=== PATIENT | female | born 1990 | race Caucasian/White ===

== ENCOUNTER → 2023-03-02 | Outpatient (CLI) | payer BC ==
[~2023-03-02] MED LIST: ASPERCREME1 EACH TP; FLEXERIL 1010 MG/TAB PO; PREDNISONE20 MG PO; TORADOL 10MG TA10 MG PO
[2023-03-02 07:48] LABS: BASO # 0.1 K/mm3 (0.0-0.2); BASO % 0.9 % (0.0-2.0); EOS # 0.1 K/mm3 (0.0-0.7); EOS % 1.5 % (0.0-4.0); GRAN # 4.1 K/mm3 (1.4-6.5); GRAN % 60.9 % (42.2-75.2); HEMATOCRIT 40.4 % (37.0-47.0); HEMOGLOBIN 14.1 g/dl (12.5-16.0); LYMPH % 29.1 % (20.0-51.0); MEAN CELL VOLUME 85 fl (80.0-100.0); MEAN CORPUSCULAR HEMOGLOBIN 30 pg (27-31); MEAN CORPUSCULAR HGB CONC 35 g/dl (33.0-37.0); MEAN PLATELET VOLUME 9.7 fl (7.4-10.4); MONO # 0.5 K/mm3 (0.1-0.6); PLATELET COUNT 282 K/mm3 (130-400); RED BLOOD COUNT 4.74 M/mm3 (4.10-5.30); REDCELL DISTRIBUTION WIDTH-CV 13.1 % (11.5-14.5)
[2023-03-02 08:07] LABS: ALBUMIN 3.8 gm/dL (3.5-5.0); BILIRUBIN,TOTAL 0.6 mg/dL (0.2-1.2); CALCIUM 9.2 mg/dL (8.4-10.2); CHOLESTEROL RISK RATIO 3.6; CREATININE, serum 0.75 mg/dL (0.57-1.11); TOTAL PROTEIN 7.5 gm/dL (6.2-8.1)
== END ==
LOC: COL.LAB 07:15
PROVIDERS: Student in an Organized Health Care Education/Training Program
DX: E11.9 Type 2 diabetes mellitus without complications (principal)

== ENCOUNTER 2023-03-08 16:51 | Emergency (ER) | payer BC ==
[~2023-03-08] VITALS: Ht 162.6 cm; Wt 105.5 kg
[2023-03-08 16:55] VITALS: TEMP 98.4
[2023-03-08 18:04] LABS: COLLECTION METHOD CLEAN CATCH
[2023-03-08 18:25] LABS: PH 5.5 (5.0-8.5); URINE APPEARANCE Clear (CLEAR/HAZY); URINE BLOOD Negative (NEGATIVE); URINE COLOR Yellow (YELLOW); URINE GLUCOSE Negative (NEGATIVE); URINE KETONE Negative (NEGATIVE); URINE NITRATE Negative (NEGATIVE); URINE PROTEIN(semi-quant) Negative (NEGATIVE); URINE UROBILINOGEN 0.2 E.U/dL (0.2-1.0)
[2023-03-08] MEDS ORDERED: NORCO 325 MG-51 TAB PO (18:25)
[2023-03-08] MEDS ORDERED: MEDROL 4MG DOSPA4 MG PO (18:25)
[2023-03-08 18:49] LABS: URINE BACTERIA Rare /hpf (NONE SEEN); URINE RBC None Seen /hpf (0-2)
[2023-03-08 18:56] VITALS: BP 158/93; PULSE 78
== END 2023-03-08 18:56 | disposition home or self-care (01) ==
LOC: COL.ER 16:51
PROVIDERS: Family Medicine
DX: M54.50 Low back pain, unspecified (principal); Z87.39 Personal history of other diseases of the musculoskeletal system and connective tissue
CPT/HCPCS: J1200; J2270

== ENCOUNTER → 2023-04-04 | Outpatient (CLI) | payer BC ==
[~2023-04-04] MED LIST changes: +MEDROL 4MG DOSPA4 MG PO; +NORCO 325 MG-51 TAB PO
[2023-04-04 08:00] LABS: BASO # 0.1 K/mm3 (0.0-0.2); BASO % 0.8 % (0.0-2.0); EOS # 0.2 K/mm3 (0.0-0.7); EOS % 2.4 % (0.0-4.0); GRAN # 3.4 K/mm3 (1.4-6.5); GRAN % 52.7 % (42.2-75.2); HEMATOCRIT 41.7 % (37.0-47.0); HEMOGLOBIN 14.7 g/dl (12.5-16.0); LYMPH # 2.4 K/mm3 (1.2-3.4); MEAN CELL VOLUME 85 fl (80.0-100.0); MEAN CORPUSCULAR HEMOGLOBIN 30 pg (27-31); MEAN CORPUSCULAR HGB CONC 35 g/dl (33.0-37.0); MONO # 0.4 K/mm3 (0.1-0.6); MONO % 6.6 % (1.7-9.3); PLATELET COUNT 327 K/mm3 (130-400); RED BLOOD COUNT 4.89 M/mm3 (4.10-5.30); REDCELL DISTRIBUTION WIDTH-CV 12.6 % (11.5-14.5)
[2023-04-04 08:14] LABS: ALBUMIN 3.7 gm/dL (3.5-5.0); BILIRUBIN,TOTAL 0.5 mg/dL (0.2-1.2); CALCIUM 9.5 mg/dL (8.4-10.2); CREATININE, serum 0.81 mg/dL (0.57-1.11); POTASSIUM 3.7 mmol/L (3.5-4.5)
[2023-04-04 08:36] LABS: THYROID STIMULATING HORMONE 3.208 uIU/mL (0.350-4.940)
== END ==
LOC: COL.LAB 07:11
PROVIDERS: Surgery
DX: E66.01 Morbid (severe) obesity due to excess calories (principal); E55.9 Vitamin D deficiency, unspecified

== ENCOUNTER 2023-04-05 15:45 | Outpatient (RCR) | payer BC | END 2023-04-06 | disposition home or self-care (01) | LOC: WSC | DX: M54.18 Radiculopathy, sacral and sacrococcygeal region (principal) ==

== ENCOUNTER 2023-04-27 12:41 | Emergency (ER) | payer BC ==
[~2023-04-27] VITALS: Ht 165.1 cm; Wt 145.5 kg
[2023-04-27] MEDS ORDERED: Ketorolac 30 MG/ML VIAL IM ONE (13:15)
[2023-04-27] MEDS ORDERED: ROXICODONE 55 MG/TAB PO (13:21)
[2023-04-27 13:50] VITALS: BP 142/82; PULSE 84; TEMP 98
== END 2023-04-27 13:50 | disposition home or self-care (01) ==
LOC: COL.ER 12:41
DX: M54.50 Low back pain, unspecified (principal); Z87.39 Personal history of other diseases of the musculoskeletal system and connective tissue
CPT/HCPCS: J1885

== ENCOUNTER 2023-09-12 18:53 | Emergency (ER) | payer SELFPAY ==
[~2023-09-12] VITALS: Ht 165.1 cm; Wt 155.5 kg
[~2023-09-12 18:53] MED LIST changes: +ROXICODONE 55 MG/TAB PO
[2023-09-12 18:57] VITALS: TEMP 98.6
[2023-09-12] MEDS ORDERED: LR 1,000 ML IV ONE (19:15)
[2023-09-12] MEDS ORDERED: dexAMETHasone 10 MG/ML VIAL IV ONE (19:15)
[2023-09-12] MEDS ORDERED: Ketorolac 15 MG/ML VIAL IV ONE (19:15)
[2023-09-12 20:06] LABS: BASO % 0.5 % (0.0-2.0); EOS # 0.2 K/mm3 (0.0-0.7); EOS % 2.4 % (0.0-4.0); GRAN # 3.4 K/mm3 (1.4-6.5); GRAN % 54.3 % (42.2-75.2); HEMATOCRIT 43.2 % (37.0-47.0); HEMOGLOBIN 14.6 g/dl (12.5-16.0); LYMPH # 2.2 K/mm3 (1.2-3.4); LYMPH % 34.6 % (20.0-51.0); MEAN CELL VOLUME 86 fl (80.0-100.0); MEAN CORPUSCULAR HEMOGLOBIN 29 pg (27-31); MEAN CORPUSCULAR HGB CONC 34 g/dl (33.0-37.0); MEAN PLATELET VOLUME 9.9 fl (7.4-10.4); MONO # 0.5 K/mm3 (0.1-0.6); MONO % 7.9 % (1.7-9.3); PLATELET COUNT 307 K/mm3 (130-400); RED BLOOD COUNT 5.03 M/mm3 (4.10-5.30); REDCELL DISTRIBUTION WIDTH-CV 13.1 % (11.5-14.5)
[2023-09-12 20:21] LABS: ALBUMIN 3.9 g/dL (3.5-5.0); BILIRUBIN,TOTAL 0.5 mg/dL (0.2-1.2); CALCIUM 9.7 mg/dL (8.4-10.2); CREATININE, serum 0.83 mg/dL (0.57-1.11); POTASSIUM 4.6 mEq/L (3.5-4.5); TOTAL PROTEIN 7.7 g/dl (6.2-8.1)
[2023-09-12] MEDS ORDERED: DOXYCYCLINE 10100 MG PO (21:16)
[2023-09-12 21:35] VITALS: BP 154/90; PULSE 76
== END 2023-09-12 21:44 | disposition home or self-care (01) ==
LOC: COL.ER 18:53
PROVIDERS: Emergency Medicine
DX: G43.909 Migraine, unspecified, not intractable, without status migrainosus (principal); Z88.1 Allergy status to other antibiotic agents
CPT/HCPCS: J1100; J1885; J2765; J7120

== ENCOUNTER 2023-11-20 13:55 | Emergency (ER) | payer BC ==
[~2023-11-20] VITALS: Ht 165.1 cm; Wt 105.0 kg
[~2023-11-20 13:55] MED LIST changes: +DOXYCYCLINE 10100 MG PO
[2023-11-20 14:15] VITALS: BP 144/90; TEMP 98.7
[2023-11-20 16:52] LABS: COLLECTION METHOD CLEAN CATCH
[2023-11-20 16:55] LABS: PH 6.5 (5.0-8.5); URINE APPEARANCE CLEAR (CLEAR/HAZY); URINE BLOOD NEGATIVE (NEGATIVE); URINE COLOR YELLOW (YELLOW); URINE GLUCOSE NEGATIVE (NEGATIVE); URINE KETONE NEGATIVE (NEGATIVE); URINE NITRATE NEGATIVE (NEGATIVE); URINE PROTEIN(semi-quant) NEGATIVE (NEGATIVE); URINE UROBILINOGEN 0.2 E.U/dL (0.2-1.0)
[2023-11-20] MEDS ORDERED: PERCOCET 325 MG1 TA2 PO (17:05)
[2023-11-20 17:40] LABS: BASO # 0.1 K/mm3 (0.0-0.2); BASO % 0.7 % (0.0-2.0); EOS # 0.1 K/mm3 (0.0-0.7); EOS % 1.8 % (0.0-4.0); GRAN # 4.5 K/mm3 (1.4-6.5); GRAN % 59.5 % (42.2-75.2); HEMATOCRIT 40.1 % (37.0-47.0); HEMOGLOBIN 14.2 g/dl (12.5-16.0); LYMPH # 2.3 K/mm3 (1.2-3.4); LYMPH % 30.4 % (20.0-51.0); MEAN CELL VOLUME 86 fl (80.0-100.0); MEAN CORPUSCULAR HEMOGLOBIN 31 pg (27-31); MEAN CORPUSCULAR HGB CONC 35 g/dl (33.0-37.0); MEAN PLATELET VOLUME 10.6 fl (7.4-10.4); MONO # 0.5 K/mm3 (0.1-0.6); MONO % 7.1 % (1.7-9.3); PLATELET COUNT 309 K/mm3 (130-400); RED BLOOD COUNT 4.66 M/mm3 (4.10-5.30); REDCELL DISTRIBUTION WIDTH-CV 13.8 % (11.5-14.5)
[2023-11-20 17:58] LABS: BILIRUBIN,TOTAL 0.5 mg/dL (0.2-1.2); C-REACTIVE PROTEIN 0.24 mg/dL (0.00-0.50); CALCIUM 9.5 mg/dL (8.4-10.2); CREATININE, serum 0.74 mg/dL (0.57-1.11); POTASSIUM 3.5 mEq/L (3.5-4.5); TOTAL PROTEIN 7.6 g/dl (6.2-8.1)
[2023-11-20] MEDS ORDERED: Home oxyCODONE/Acetaminophen 5/325 MG #4 TAB/PACK PO ONE (18:15)
[2023-11-20 18:43] VITALS: PULSE 79
== END 2023-11-20 18:43 | disposition home or self-care (01) ==
LOC: COL.ER 13:55
PROVIDERS: Physician Assistant
DX: M54.50 Low back pain, unspecified (principal); G89.29 Other chronic pain; Z98.890 Other specified postprocedural states